=== PATIENT | female | born 1945 ===

== ENCOUNTER 2024-06-09 12:19 | Emergency (ER) | payer OTHER, SELFPAY ==
[2024-06-09 12:24] VITALS: BP 145/60
[2024-06-09 12:54] LABS: % Basophils 0.9 % (0-2); % Eosinophils 6.2 % (0-6); % Immature Granulocytes 0.2 % (0-0.5); % Lymphocytes 34.4 % (20.5-51.1); % Monocytes 5.6 % (1.7-9.3); % Neutrophils 52.7 % (42.2-75.2); Absolute Basophils 0.1 10^3/uL (0-0.2); Absolute Eosinophils 0.4 10^3/uL (0-0.7); Absolute Lymphocytes 2.2 10^3/uL (1.2-3.4); Absolute Monocytes 0.4 10^3/uL (0.1-0.6); Absolute Neutrophils 3.4 10^3/uL (1.4-6.5); Hematocrit 35.2 % (37.0-47.0); Hemoglobin 12.3 g/dL (12.0-16.0); Mean Corp Hgb Conc. 34.9 g/dL (33.0-37.0); Mean Corpuscular Volume 91.7 fL (81.0-99.0); Nucleated Red Blood Cells % 0 %; Platelet Count 183 10^3/uL (130-400); Red Blood Cell Count 3.84 10^6/uL (4.20-5.40); Red Cell Dist. Width 11.9 % (11.5-14.5); White Blood Cell Count 6.4 10^3/uL (4.8-10.8)
[2024-06-09 13:04] LABS: ALT (SGPT) 13 U/L (0-35); AST (SGOT) 22 U/L (14-36); Albumin 4.4 g/dl (3.5-5.0); Alkaline Phosphatase 55 U/L (38-126); Blood Urea Nitrogen 23 mg/dl (7-17); Calcium 10.1 mg/dl (8.4-10.2); Carbon Dioxide 24 mmol/L (22-30); Chloride 105 mmol/L (98-107); Glucose 162 mg/dl (70-99); Potassium 3.9 mmol/L (3.5-5.1); Sodium 137 mmol/L (135-145); Total Bilirubin 0.6 mg/dl (0.2-1.3); Total Protein 6.4 g/dl (6.3-8.2); eGFR 57.31
--- NOTE | 2024-06-09 13:20 | EDRN ---
Lisha Roberts PA in to see ptVictorina
[2024-06-09 13:30] VITALS: BMI 25.0
--- NOTE | 2024-06-09 13:43 | ED.GENMED ---
History of Present Illness
General
Chief Complaint: Skin Problem
Source: patient
Time Seen by Provider: 06/09/24 13:11
History of Present Illness
History of Present Illness:
79yoF with a history of hypertension and hyperlipidemia presenting for evaluation of a left neck rash. Rash initially started 3 days ago. She was seen by her PCP and was diagnosed with cellulitis and was prescribed Keflex. She woke up this morning
and the rash appeared worse. The rash is very itchy but she denies any significant tenderness. She has been apply hydrocortisone cream which seems to help. She is otherwise feeling well. She denies fevers, chills, body aches, fatigue.
Phy Exam
General Physical Exam
General Presentation: well appearing and no apparent distress
General age: appears stated age
General Skin: warm and dry
General Habitus: normal
General Mental: alert
General Hydration: appears well hydrated
Pulmonary Exam
Pulmonary Exam: no respiratory distress
Skin Exam
Skin Exam: other (Area of erythema to L side of neck that extends to upper chest. Scattered raised areas present. No vesicular lesions. Area is itchy, non-tender. Blanchable. )
Psychiatric Exam
Psychiatric Exam: normal mood/affect
Course
Orders/Labs/Results
Orders:
Orders
06/09/24 12:34
Complete Blood Count/With Diff Urgent
Comprehensive Metabolic Panel Urgent
Abnormal Lab Results
06/09/24
12:34
RBC 3.84 L 10^6/uL
(4.20-5.40)
Hct 35.2 L %
(37.0-47.0)
MCH 32.0 H pg
(27.0-31.0)
MPV 11.0 H fL
(7.4-10.4)
Eosinophils % 6.2 H %
(0-6)
BUN 23 H mg/dl
(7-17)
Glucose 162 H mg/dl
(70-99)
06/09/24 12:34
06/09/24 12:34
Vital Signs
Initial and Last Documented VS:
Initial Vital Signs
Temp Pulse Resp BP Pulse Ox
97.7 F 59 17 145/60 97
06/09/24 12:24 06/09/24 12:24 06/09/24 12:24 06/09/24 12:24 06/09/24 12:24
Last Documented Vital Signs
Temp Pulse Resp BP Pulse Ox
97.7 F 50 16 122/47 99
06/09/24 12:24 06/09/24 13:58 06/09/24 14:00 06/09/24 13:58 06/09/24 13:58
MDM/Problems Addressed
Differential Diagnosis Includes:
79yoF here with a L neck rash x 3 days that is extremely itchy. Currently on Keflex which was prescribed by her PCP for cellulitis. Here with worsening rash today. No fevers, chills, or systemic symptoms. She is afebrile and hemodynamically stable.
She is well appearing in no distress. There is erythema on exam with scattered raised areas. Exam appears more consistent with dermatitis rather than cellulitis. No vesicular lesions to suggest zoster.
Labs obtained in triage and white count is normal. Will prescribe prednisone. She was advised to continue Keflex. Advised f/u with her PCP in 72 hours for reassessment. ED return precautions discussed including worsening rash, fevers, chills.
Patient expressed understanding and is agreeable to plan. She was discharged in stable condition.
*Critical Care Note
Total Time (30-74mins, 75-104mins- exclusive of procedures): Not Applicable
ED Attending Note
-
Portions of this chart may have been created with voice recognition software.� Occasional wrong word or��sound alike� substitutions may have occurred due to the inherent limitations of voice recognition software.
Discharge Plan
Departure
Patient Disposition: Home (Routine Discharge)
Date of Disposition: 06/09/24
Time of Disposition: 13:51
Patient with high blood pressure during this ER visit?: Yes
Discharge Problem:
Rash and nonspecific skin eruption
Instructions: Skin Rash (DC)
Prescriptions:
New
prednisone 20 mg tablet
40 mg PO DAILY 5 Days Qty: 10 0RF
Referrals:
Subhash Rose, DO [Family Provider] -
Activity Restrictions/Additional Instructions:
Continue taking Keflex. Take prednisone as prescribed.
Please follow-up with your family doctor on Wednesday. Return to the ER immediately with any worsening symptoms, fevers, chills.
Interventions
Interventions:
*Risk Screen - Suicide Last Done: 06/09/24 12:26
*General Assessment Last Done: 06/09/24 12:26
*Neglect/Abuse Screening Last Done: 06/09/24 12:26
ED- Fall Risk Assessment Last Done: 06/09/24 13:34
*ED COVID-19 Vaccine History Last Done: 06/09/24 12:26
*Nursing Disposition Last Done: 06/09/24 14:05
ED-Skin Assessment Last Done: 06/09/24 13:35
Discharge Date and Time
Discharge Date/Time: 06/09/24 14:05
Print Language: FRENCH
--- NOTE | 2024-06-09 13:51 | WOUNDNOTE ---
WOUND/SKIN CARE NOTE: Pt identified by name and .
Close up of rash anteriorly on upper L chest wall
L upper posterior upper back and neck.
L lateral neck and top of L shoulder
L anterior neck and upper L chest.
[2024-06-09 13:58] VITALS: BP 122/47
== END 2024-06-09 14:05 | disposition home or self-care (01) ==
LOC: EMR 12:19
PROVIDERS: EMERGENCY PHYSICIAN Emergency Medicine; FAMILY PHYSICIAN Family Medicine
DX: R21 Rash and other nonspecific skin eruption (principal); I10 Essential (primary) hypertension; E78.5 Hyperlipidemia, unspecified
CPT/HCPCS: 99283; 80053; 85025

== ENCOUNTER → 2025-05-10 08:09 | Outpatient (REF) | payer OTHER, SELFPAY | LOC: RAD 08:09 | PROVIDERS: ATTENDING PHYSICIAN Podiatrist Foot & Ankle Surgery; FAMILY PHYSICIAN Family Medicine | DX: I82.4Z2 Acute embolism and thrombosis of unspecified deep veins of left distal lower extremity (principal) | CPT/HCPCS: 93971 ==

== ENCOUNTER 2025-09-04 11:47 | Emergency (ER) | payer OTHER, SELFPAY ==
[2025-09-04 11:56] VITALS: BP 157/89
[2025-09-04 12:21] LABS: Hematocrit 39.6 % (37.0-47.0); Hemoglobin 13.8 g/dL (12.0-16.0); Mean Corp Hgb Conc. 34.8 g/dL (33.0-37.0); Mean Corpuscular Volume 91.5 fL (81.0-99.0); Nucleated Red Blood Cells % 0 %; Platelet Count 233 10^3/uL (130-400); Red Cell Dist. Width 11.6 % (11.5-14.5)
[2025-09-04 12:36] LABS: ALT (SGPT) 20 U/L (0-35); AST (SGOT) 22 U/L (14-36); Albumin 5.0 g/dl (3.5-5.0); Alkaline Phosphatase 69 U/L (38-126); Blood Urea Nitrogen 27 mg/dl (7-17); Calcium 10.4 mg/dl (8.4-10.2); Carbon Dioxide 20 mmol/L (22-30); Chloride 101 mmol/L (98-107); Glucose 276 mg/dl (70-99); Lipase 195 U/L (23-300); Magnesium 1.6 mg/dl (1.6-2.3); Potassium 4.8 mmol/L (3.5-5.1); Sodium 135 mmol/L (135-145); Total Protein 7.5 g/dl (6.3-8.2); eGFR 50.80
[2025-09-04 13:10] LABS: Urine Character Clear (Clear)
[2025-09-04 13:16] LABS: Urine Red Blood Cell 0-2 /HPF (0-2); Urine White Cell 30-40 /HPF (0-5)
--- NOTE | 2025-09-04 15:25 | ED.GENMED ---
Addendum entered and electronically signed by Gregg Tripathi PA-C 09/06/25 06:51:
Urine culture shows greater than 100,000 colony-formin units of gram-negative bacilli. On cefdinir. Sensitivities pending
Original Note:
History of Present Illness
General
Chief Complaint: Weakness
Source: patient
Exam Limitations: none
Time Seen by Provider: 09/04/25 15:08
History of Present Illness
History of Present Illness:
80-year-old female presents complaining of fatigue nausea weakness headache loose stools. Has been getting worse over the past several days. She was recently started on a different diuretic and has noted increased urinary frequency. She denies
any dysuria. She had an episode of diarrhea. She is nauseous without vomiting. No other complaints at this time
Phy Exam
Physical Exam
Physical Exam:
General: Well-appearing female no acute respiratory distress
HEENT normal cephalic atraumatic mucosa dry
Heart: Regular rate and rhythm
Lungs: Clear no wheeze
Abdomen is soft nontender
Extremities: No cyanosis or edema
Skin warm no rash
Course
Orders/Labs/Results
Orders:
Orders
09/04/25 12:07
Complete Blood Count/With Diff Urgent
Comprehensive Metabolic Panel Urgent
Lipase Urgent
Magnesium Urgent
09/04/25 12:57
Urinalysis Reflex To Culture Urgent
Date Specimen was Collected: 09/04/25
Time Specimen was Collected: 12:56
Urine Microscopic Reflex Cult Urgent
Urine Culture Urgent
NIGEL Source: U
Specimen Description:
Date Specimen was Collected: 09/04/25
Time Specimen was Collected: 12:56
09/04/25 15:24
0.9% Sodium Chloride 1000 ml [Nss] 1,000 ml IV BOLUS
CefTRIAXone [Rocephin] 1,000 mg IV NOW STA
Ondansetron Injectable [Zofran] 4 mg IV NOW STA
09/04/25 17:28
Tramadol HCl [Ultram] 50 mg PO NOW STA
Abnormal Lab Results
09/04/25 09/04/25
12:07 12:57
MCH 31.9 H pg
(27.0-31.0)
MPV 10.7 H fL
(7.4-10.4)
Absolute Lymphs (auto) 1.0 L 10^3/uL
(1.2-3.4)
Lymphocytes % 15.9 L %
(20.5-51.1)
Carbon Dioxide 20 L mmol/L
(22-30)
BUN 27 H mg/dl
(7-17)
Creatinine 1.1 H mg/dL
(0.6-1.0)
Glucose 276 H mg/dl
(70-99)
Calcium 10.4 H mg/dl
(8.4-10.2)
Ur Occult Blood Reflex 1+ A
(Negative)
Urine Nitrite (Reflex) Positive A
(Negative)
Leukocyte Esterase Rfl 3+ A
(Negative)
Urine WBC (Reflex) 30-40 A /HPF
(0-5)
Urine Bacteria (Reflex) Moderate A
(Negative)
Urine Glucose 2+ A
(Negative)
Urine Albumin (Reflex) 2+ A
(Neg - Trace)
09/04/25 12:07
09/04/25 12:07
Vital Signs
Initial and Last Documented VS:
Initial Vital Signs
Temp Pulse Resp BP Pulse Ox
98.1 F 86 20 157/89 97
09/04/25 11:56 09/04/25 11:56 09/04/25 11:56 09/04/25 11:56 09/04/25 11:56
Last Documented Vital Signs
Temp Pulse Resp BP Pulse Ox
98.1 F 86 20 157/89 97
09/04/25 11:56 09/04/25 11:56 09/04/25 11:56 09/04/25 11:56 09/04/25 16:00
MDM/Problems Addressed
Differential Diagnosis Includes:
Patient with overall unwell sensation. She has noted decreased intake. There is been increased urinary frequency and diarrhea as well. Consider dehydration versus electrolyte abnormality versus viral illness or UTI
Will check labs hydrate give Zofran
*Pulse Oximetry
SaO2: 97
Oxygen Mode of Delivery: Room air
Patient hypoxic: no
*Critical Care Note
Total Time (30-74mins, 75-104mins- exclusive of procedures): Not Applicable
Update Note
Update Note:
Patient reevaluated she was hydrated given Rocephin. Standing up talking to friends. No indication for admission. Will continue to advise hydration at home and treat with Omnicef for her UTI
ED Attending Note
-
Portions of this chart may have been created with voice recognition software.� Occasional wrong word or��sound alike� substitutions may have occurred due to the inherent limitations of voice recognition software.
Discharge Plan
Departure
Patient Disposition: Home (Routine Discharge)
Date of Disposition: 09/04/25
Time of Disposition: 18:08
Patient with high blood pressure during this ER visit?: No
Discharge Problem:
Acute UTI
Prescriptions:
New
cefdinir 300 mg capsule
300 mg PO BID Qty: 14 0RF
No Action
carvedilol [Coreg] 6.25 mg Tablet
6.25 mg PO BID
atorvastatin [Lipitor] 20 mg Tablet
20 mg PO HS
loperamide 2 mg Tablet
2 mg PO BIDPRN PRN (Reason: DAIRRHEA)
glipizide 5 mg Tablet Extended Release 24hr
5 mg PO DAILY
cyanocobalamin (vitamin B-12) 1,000 mcg Tablet
1,000 mcg PO DAILY
amlodipine [Norvasc] 5 mg Tablet
5 mg PO DAILY
tramadol 50 mg Tablet
50 mg PO QID
amiloride 5 mg Tablet
5 mg PO QPM
pantoprazole [Protonix] 40 mg Tablet,Delayed Release (Dr/Ec)
40 mg PO DAILY
ibuprofen [Advil] 200 mg Tablet
200 mg PO DAILYPRN PRN (Reason: MILD PAIN)
doxazosin 4 mg Tablet
4 mg PO HS
montelukast [Singulair] 10 mg Tablet
10 mg PO DAILY
zolpidem [Ambien] 5 mg Tablet
5 mg PO HSPRN PRN (Reason: sleep)
gabapentin 100 mg Capsule
100 mg PO DAILY
celecoxib [Celebrex] 100 mg Capsule
100 mg PO BID
lisinopril 40 mg Tablet
40 mg PO DAILY
magnesium oxide 250 mg magnesium Tablet
250 mg PO TID
Systane (PF) 0.4-0.3 % Dropperette
1 drp BOTH EYES BID
cholecalciferol (vitamin D3) [Vitamin D3] 25 mcg (1,000 unit) Tablet
25 mcg PO DAILY
levocetirizine [Xyzal] 5 mg Tablet
5 mg PO HS
PreserVision AREDS 2,148 mcg-113 mg-45 mg-17.4mg Tablet
1 tab PO DAILY
guaifenesin [Mucinex] 600 mg Tablet Extended Release 12hr
600 mg PO DAILY
Referrals:
Subhash Rose DO [Family Provider, Family Practice]
Activity Restrictions/Additional Instructions:
Rest. Stay hydrated. Use antibiotic as directed. Return if worse otherwise follow-up with your doctor
Interventions
Interventions:
*Risk Screen - Suicide Last Done: 09/04/25 11:56
*General Assessment Last Done: 09/04/25 11:56
*Neglect/Abuse Screening Last Done: 09/04/25 11:56
*ED- Fall Risk Assessment Last Done: 09/04/25 16:00
ED- Cardiac Assessment Last Done: 09/04/25 16:00
ED- Neurological Assessment Last Done: 09/04/25 16:00
ED- Pulmonary Assessment Last Done: 09/04/25 16:00
Discharge Date and Time
Print Language: EMIRATI
[2025-09-04] MEDS: NSS 1000 IV (16:07)
[2025-09-04] MEDS: ZOFRAN 4 MG IV (16:08)
[2025-09-04] MEDS: ROCEPHIN 1000 MG IV (16:09)
[2025-09-04] MEDS: ULTRAM 50 MG PO (17:37)
[2025-09-04 18:00] VITALS: BP 146/82
== END 2025-09-04 18:00 | disposition home or self-care (01) ==
LOC: EMR 11:47
PROVIDERS: Emergency Medicine; EMERGENCY PHYSICIAN Emergency Medicine; FAMILY PHYSICIAN Family Medicine
DX: N39.0 Urinary tract infection, site not specified (principal); B96.20 Unspecified Escherichia coli [E. coli] as the cause of diseases classified elsewhere
CPT/HCPCS: 99284; 96374; 96375; 96361; 80053; 81003; 81015; 83690; 83735; 85025; 87077; 87086; 87186

== ENCOUNTER 2025-09-11 14:04 | Inpatient (IN) | payer OTHER, SELFPAY ==
[2025-09-11 06:27] VITALS: BP 152/90
[2025-09-11 07:25] LABS: Hematocrit 36.1 % (37.0-47.0); Hemoglobin 12.8 g/dL (12.0-16.0); Mean Corp Hgb Conc. 35.5 g/dL (33.0-37.0); Mean Corpuscular Volume 88.3 fL (81.0-99.0); Nucleated Red Blood Cells % 0 %; Platelet Count 223 10^3/uL (130-400); Red Cell Dist. Width 11.5 % (11.5-14.5)
[2025-09-11 07:32] VITALS: BP 152/81
[2025-09-11 08:00] VITALS: BP 137/65
[2025-09-11 08:04] LABS: ALT (SGPT) 15 U/L (0-35); AST (SGOT) 20 U/L (14-36); Albumin 4.2 g/dl (3.5-5.0); Alkaline Phosphatase 66 U/L (38-126); Blood Urea Nitrogen 20 mg/dl (7-17); Calcium 9.9 mg/dl (8.4-10.2); Carbon Dioxide 20 mmol/L (22-30); Chloride 104 mmol/L (98-107); Glucose 151 mg/dl (70-99); Potassium 4.5 mmol/L (3.5-5.1); Sodium 135 mmol/L (135-145); Total Protein 6.5 g/dl (6.3-8.2); eGFR 50.80
--- NOTE | 2025-09-11 08:13 | ED.GENMED ---
History of Present Illness
General
Chief Complaint: Weakness
Source: patient, records and spouse
Exam Limitations: none
Time Seen by Provider: 09/11/25 08:05
Nursing documentation reviewed up to this point in time: agreed with
History of Present Illness
History of Present Illness:
80-year-old female with history of hypertension and hyperlipidemia presents to the ER for evaluation of multiple complaints chief among them feeling severely fatigued. Patient was notably seen in this emergency room 1 week ago for generalized
weakness was also having some increased urinary frequency at the time and some nausea. Urinalysis was positive for infection and she was started on Omnicef and encouraged to drink fluids. She has taken this course of antibiotics and has been
drinking plenty of fluids but she says that she feels no better. She actually says that she feels worse. She has increased generalized weakness/fatigue. She says that she has had persistent increased frequency of urination and has started to have
some dysuria over the past 24 to 48 hours. She says she is having persistent abdominal cramping over the past few days. She has been having nausea with dry heaves�no vomiting. She denies any diarrhea�in fact she says she has been constipated for
the past few days requiring senna and finally had a bowel movement this morning. She has not noted fever. She denies any chest pain but has had persistent hacking cough nonproductive. Mild associated shortness of breath. She denies any other
acute complaints.
Review of Systems
Review of Systems
All Other Systems: ROS reviewed and negative except as documented in HPI and ROS
Constitutional: Reports fatigue; Denies fever
EENT: Denies sore throat
Respiratory: Reports cough and trouble breathing
Cardiac: Denies chest pain
ABD/GI: Reports abdominal pain, nausea and constipated; Denies vomiting or diarrhea
: Reports dysuria and frequency; Denies flank pain
Musculoskeletal: Denies neck pain
Neurological: Denies dizzy or headache
Phy Exam
Physical Exam
Physical Exam:
General: Awake, alert, oriented x3; no acute distress
Head: Normocephalic, atraumatic
Eyes: Conjunctiva normal, sclera anicteric
Throat: Airway intact, handling secretions, mucous membranes moist
Neck: Trachea midline, supple without meningismus
Lungs: Clear to auscultation bilaterally, no wheezing, rales, rhonchi; no coughing during my assessment
Heart: Regular rate and rhythm, no murmurs, gallops, or rubs appreciated
Abd: Soft, non distended, nontender; tender to palpation across lower abdomen maximal in the suprapubic region
Neuro: Grossly intact
Skin: Warm and dry
Extremities: Warm and well-perfused
Scores
Heart Failure Risk
Heart Failure Risk Score: Not Applicable
Heart Score for Chest Pain Patients
STEMI patient?: Not applicable
Withdrawal Assessment of Alcohol
Withdrawal Assessment Completed?: Not applicable
Sepsis
Sepsis Screening
Sepsis Assessment: Sepsis Ruled Out
Sepsis Screen
Sepsis Screen: Sepsis Ruled Out
Date: 09/11/25
Time: 10:22
Course
Orders/Labs/Results
Orders:
Orders
09/11/25 07:16
CMP [Comprehensive Metabolic Panel] Urgent
Complete Blood Count/With Diff Urgent
09/11/25 07:50
Electrocardiogram (*1) Urgent
Reason for Study: Fatigue / Weakness
EKG- Treatment ONCE
09/11/25 08:07
CR Chest - 2 Views Urgent
Comment:
Reason For Exam: SOB, weakness
09/11/25 08:19
CT Abd/pelvis W Iv Cont Urgent
Comment:
Reason For Exam: lower abd pain, TTP suprapubic and LLQ, nausea
09/11/25 08:22
COVID-19 Antigen Urgent
Source: Nasal Swab
Urinalysis Reflex To Culture Urgent
Date Specimen was Collected: 09/11/25
Time Specimen was Collected: 08:15
Urine Microscopic Reflex Cult Urgent
Influenza A+B Rapid Molecular Urgent
NIGEL Source: Nasal Swab
Specimen Description:
Urine Culture Urgent
NIGEL Source: U
Specimen Description:
Date Specimen was Collected: 09/11/25
Time Specimen was Collected: 08:15
Abnormal Lab Results
09/11/25 09/11/25
07:16 08:22
RBC 4.09 L 10^6/uL
(4.20-5.40)
Hct 36.1 L %
(37.0-47.0)
MCH 31.3 H pg
(27.0-31.0)
Lymphocytes % 17.4 L %
(20.5-51.1)
Carbon Dioxide 20 L mmol/L
(22-30)
BUN 20 H mg/dl
(7-17)
Creatinine 1.1 H mg/dL
(0.6-1.0)
Glucose 151 H mg/dl
(70-99)
Leukocyte Esterase Rfl 1+ A
(Negative)
Urine Bacteria (Reflex) Few A
(Negative)
Urine Albumin (Reflex) 1+ A
(Neg - Trace)
09/11/25 07:16
09/11/25 07:16
Vital Signs
Initial and Last Documented VS:
Initial Vital Signs
Temp Pulse Resp BP Pulse Ox
36.4 C 80 24 152/90 98
09/11/25 06:27 09/11/25 06:27 09/11/25 06:27 09/11/25 06:27 09/11/25 06:27
Last Documented Vital Signs
Temp Pulse Resp BP Pulse Ox
36.4 C 70 18 137/65 98
09/11/25 06:27 09/11/25 09:30 09/11/25 09:30 09/11/25 08:00 09/11/25 09:30
MDM/Problems Addressed
Differential Diagnosis Includes:
Viral syndrome, UTI, intra-abdominal infection including diverticulitis, pneumonia
MDM/Problems Addressed:
80-year-old female presents to the ER for evaluation of increased generalized weakness/fatigue progressive since ER visit last week where she was diagnosed with UTI.. She has had increased abdominal pains, nausea with dry heaves. Also persistent
cough with some mild shortness of breath. She is hypertensive but otherwise normal vital signs here. Physical exam is as above. She had labs in triage including a CBC which showed no clinically significant abnormalities and a CMP which shows
marginal EMA with creatinine of 1.1 stable since her visit last week. Will repeat urinalysis. Swab for COVID and flu. Check chest x-ray to evaluate for pneumonia. Check CT abdomen. Reassess after the above.
COVID and flu swabs are negative here. Her urinalysis today is essentially bland. Her chest x-ray shows no acute disease. Abdominal CT shows signs consistent with diffuse colitis. Infectious colitis versus inflammatory colitis, unlikely ischemic
colitis based on full clinical picture and imaging. C. difficile is a consideration especially with antibiotics recently however she has actually been constipated rather than having diarrhea which makes this extremely unlikely. Will plan to admit
for symptom control, GI consultation. Discussed case with hospitalist.
Acute Exacerbation and/or Progression of Chronic Illness: HTN
*Radiology
Radiology exam reviewed: radiology read reviewed
*Pulse Oximetry
SaO2: 94
Oxygen Mode of Delivery: Room air
Patient hypoxic: no (94%)
*Critical Care Note
Total Time (30-74mins, 75-104mins- exclusive of procedures): Not Applicable
Data Reviewed
Review of Other/Old Records Reveals: Labs and Records
Source: patient, records and spouse
Patient Management
Discussion with other providers: Hospitalist (Discussed with hospitalist)
Escalation/DeEscalation of care consider admission/obs:
Admission indicated
ED Attending Note
-
Portions of this chart may have been created with voice recognition software.� Occasional wrong word or��sound alike� substitutions may have occurred due to the inherent limitations of voice recognition software.
Discharge Plan
Departure
Patient Disposition: Admit
Date of Disposition: 09/11/25
Time of Disposition: 10:29
Admit to doctor: Jarod
Presentation/result/management discussed w/ accepting MD/DO: Hospitalist
Discharge Problem:
Colitis
Prescriptions:
No Action
carvedilol [Coreg] 6.25 mg Tablet
6.25 mg PO BID
atorvastatin [Lipitor] 20 mg Tablet
20 mg PO HS
loperamide 2 mg Tablet
2 mg PO BIDPRN PRN (Reason: DAIRRHEA)
glipizide 5 mg Tablet Extended Release 24hr
5 mg PO DAILY
cyanocobalamin (vitamin B-12) 1,000 mcg Tablet
1,000 mcg PO DAILY
amlodipine [Norvasc] 5 mg Tablet
5 mg PO DAILY
tramadol 50 mg Tablet
50 mg PO QID
amiloride 5 mg Tablet
5 mg PO QPM
pantoprazole [Protonix] 40 mg Tablet,Delayed Release (Dr/Ec)
40 mg PO DAILY
ibuprofen [Advil] 200 mg Tablet
200 mg PO DAILYPRN PRN (Reason: MILD PAIN)
doxazosin 4 mg Tablet
4 mg PO HS
montelukast [Singulair] 10 mg Tablet
10 mg PO DAILY
zolpidem [Ambien] 5 mg Tablet
5 mg PO HSPRN PRN (Reason: sleep)
gabapentin 100 mg Capsule
100 mg PO DAILY
celecoxib [Celebrex] 100 mg Capsule
100 mg PO BID
lisinopril 40 mg Tablet
40 mg PO DAILY
magnesium oxide 250 mg magnesium Tablet
250 mg PO TID
Systane (PF) 0.4-0.3 % Dropperette
1 drp BOTH EYES BID
cholecalciferol (vitamin D3) [Vitamin D3] 25 mcg (1,000 unit) Tablet
25 mcg PO DAILY
levocetirizine [Xyzal] 5 mg Tablet
5 mg PO HS
PreserVision AREDS 2,148 mcg-113 mg-45 mg-17.4mg Tablet
1 tab PO DAILY
guaifenesin [Mucinex] 600 mg Tablet Extended Release 12hr
600 mg PO DAILY
cefdinir 300 mg capsule
300 mg PO BID Qty: 14 0RF
Referrals:
Tevin Goodwin DO [Family Provider, Family Practice]
Interventions
Interventions:
*Risk Screen - Suicide Last Done: 09/11/25 06:27
*General Assessment Last Done: 09/11/25 07:18
*Neglect/Abuse Screening Last Done: 09/11/25 06:27
*ED- Fall Risk Assessment Last Done: 09/11/25 07:18
*ED COVID-19 Vaccine History Last Done: 09/11/25 07:18
*ED Influenza Vaccine History Last Done: 09/11/25 07:18
ED- Cardiac Assessment Last Done: 09/11/25 07:18
ED-Female Genitourinary Assessment Last Done: 09/11/25 07:18
ED- Neurological Assessment Last Done: 09/11/25 07:18
ED- Pulmonary Assessment Last Done: 09/11/25 07:18
Discharge Date and Time
Print Language: GRENADIAN
[2025-09-11 08:37] LABS: Urine Character Clear (Clear)
[2025-09-11 08:57] LABS: COVID-19 Antigen Negative (Negative)
[2025-09-11 09:56] LABS: Urine Red Blood Cell 0-2 /HPF (0-2)
[2025-09-11 10:32] VITALS: BP 163/74
[2025-09-11] MEDS: ULTRAM 50 MG PO ×2 (13:34→21:23)
--- NOTE | 2025-09-11 13:42 | HPS.HSE ---
Family Physician
-
Family Physician: Tevin Goodwin
Chief Complaint
-
weakness
History of Present Illness
80-year-old female is presenting from home with complaints of feeling fatigued. Patient was seen in the ER a week ago for weakness and dysuria. Patient was found to urinary tract infection was discharged on p.o. antibiotics. Patient says she has
been taking the antibiotics at home. States also increased oral intake of liquids. States usually she gets constipation with antibiotics and started taking Senokot for the past few days. Started having bowel movements. States formed bowel
movements. States she has been drinking p.o. fluids however was not feeling better. Has no appetite. Ate some toast but then felt nauseous afterwards. Also stating of abdominal cramping for the past few days. States of nausea with dry heaves
but no vomiting. Denies any fevers. States of just feeling fatigued overall and thus decided come into the ER. Underwent right knee replacement few months ago. Denies any chest pain or shortness of breath.
Medical History
Past Medical History
Past Medical History: Reports Other
Additional Past Medical History:
Primary hypertension
Hyperlipidemia
Uterine prolapse
Arthritis
Irritable bowel syndrome
States history of colitis
Past Surgical History: Reports Orthopedic (Recent right knee surgery.) and Other
Additional Past Surgical History:
Lumbar laminectomy
Cataract surgery
Left foot surgery
Social History
Drug: None
Personal:
Living: With Family
Family History
Family History: Not pertinent
Allergies / Home Medications
Allergies reflects when Allergies were last updated in [employer].
Home Medications with original date entered in [employer]
Allergy/Medication List:
Allergies
Allergy/AdvReac Type Severity Reaction Status Date / Time
amoxicillin (From Augmentin) Allergy Unknown Rash Verified 09/11/25 06:29
clavulanic acid (From Allergy Unknown Rash Verified 09/04/25 12:00
Augmentin)
Home Medications
amiloride 5 mg tablet 5 mg PO QPM Heart Disease/Condition 09/04/25
amlodipine 5 mg tablet (Norvasc) 5 mg PO DAILY Blood Pressure 09/04/25
atorvastatin 20 mg tablet (Lipitor) 20 mg PO HS High Cholesterol 09/04/25
carvedilol 6.25 mg tablet (Coreg) 6.25 mg PO BID Blood Pressure 09/04/25
cefdinir 300 mg capsule 300 mg PO BID #14 caps 09/04/25
celecoxib 100 mg capsule (Celebrex) 100 mg PO BID mild pain 09/04/25
cholecalciferol (vitamin D3) 25 mcg (1,000 unit) tablet (Vitamin D3) 25 mcg PO DAILY Supplement 09/04/25
cyanocobalamin (vitamin B-12) 1,000 mcg tablet 1,000 mcg PO DAILY Supplement 09/04/25
doxazosin 4 mg tablet 4 mg PO HS Heart Disease/Condition 09/04/25
gabapentin 100 mg capsule 100 mg PO DAILYPRN PRN MILD PAIN 09/04/25
glipizide 5 mg tablet, extended release 24 hr 5 mg PO DAILY Diabetes 09/04/25
guaifenesin 600 mg tablet, extended release 12 hr (Mucinex) 600 mg PO DAILYPRN PRN COUGH 09/04/25
levocetirizine 5 mg tablet (Xyzal) 5 mg PO HSPRN PRN ALLERGIES 09/04/25
lisinopril 40 mg tablet 40 mg PO DAILY Blood Pressure 09/04/25
magnesium oxide 250 mg PO TID Supplement 09/04/25
montelukast 10 mg tablet (Singulair) 10 mg PO DAILY Allergies 09/04/25
pantoprazole 40 mg tablet,delayed release (Protonix) 40 mg PO DAILY gerd 09/04/25
peg 400-propylene glycol (PF) 0.4 %-0.3 % eye drops in a dropperette 1 drp BOTH EYES BIDPRN PRN DRY EYES 09/04/25
tramadol 50 mg tablet 50 mg PO QIDPRN PRN MODERATE PAINS 09/04/25
vitamins A,C,R-ykai-waqdrd 2,148 mcg-113 mg-45 mg-17.4 mg tablet (PreserVision AREDS) 1 tab PO DAILY Supplement 09/04/25
zolpidem 5 mg tablet (Ambien) 5 mg PO HS Sleep 09/04/25
acetaminophen 325 mg tablet (Tylenol) 650 mg PO Q6HPRN PRN MILD PAIN 09/11/25
sennosides 8.6 mg tablet (senna) 8.6 mg PO HS Constipation 09/11/25
Review of Systems
-
History Source: Patient and Family
A 12 point ROS was completed and negative except as noted: Yes
Physical Exam
Vital Signs
Vital Signs
Temp Pulse Resp BP Pulse Ox
97.5 F 74 21 163/74 98
09/11/25 06:27 09/11/25 11:00 09/11/25 11:00 09/11/25 10:32 09/11/25 11:00
Physical Exam
General: Well Developed, Well Nourished and No Apparent Distress
HEENT: NormoCephalic, Moist mucous membranes and Atraumatic
Respiratory: Clear
Cardiac: S1/S2 and Regular Rhythm; No Murmur or Rub
GI: Soft, Non Distended, Normal Bowel Sounds and Tender; No Organomegaly
Rectal: Deferred by Provider
Musculoskeletal: No Clubbing, No Cyanosis and No Edema
Skin: No Rash
Neuro: Awake, AO x 3, No Motor Deficits and Nonfocal/grossly intact
Psych: Calm
Laboratory Results
-
09/11/25 07:16
09/11/25 07:16
Laboratory Results
Total Bilirubin 1.1 mg/dl (0.2-1.3) 09/11/25 07:16
AST 20 U/L (14-36) 09/11/25 07:16
ALT 15 U/L (0-35) 09/11/25 07:16
Alkaline Phosphatase 66 U/L (38-126) 09/11/25 07:16
Data Reviewed
-
CT Scan: Report Reviewed by me, Discussed with Patient and Discussed with Family
Lab Data: Labs Reviewed by me
Impression/Plan
-
#Abdominal pain/nausea likely secondary to diffuse colitis
#History of colitis in the past unclear etiology
IBS unknown type
Has undergone colonoscopy not too long ago.
Will continue with clears for now
Check stool studies
Hold off on antibiotics for now
Start IV fluids
CT abd/pelvis with Diffuse mild wall thickening and enhancement involving the entire colon, suggestive of diffuse colitis. Main consideration for infectious colitis, as well as antibiotic associated C. difficile colitis. Ischemic colitis would be
unlikely to have such a diffuse distribution. Inflammatory bowel disease is a differential consideration.
Await GI input
#Primary hypertension
Continue with carvedilol and Norvasc
#Hyperlipidemia
Continue with statin
Vitamin B12 deficiency
Continue with supplements
Diabetes mellitus type 2
Hold p.o. meds
Continue insulin sliding scale and Accu-Cheks
Chronic back pain
Continue with tramadol as needed
DVT ppx-lovenox
Full code
d/w with spouse and another family member at bedside
I spent a total of 80 minutes with the patient or on the floor. More than 50% of this time involved counseling and coordination of care.
--- NOTE | 2025-09-11 13:47 | CON.GI ---
Addendum entered and electronically signed by Yosvany Andersen MD 09/11/25 16:30:
I saw and examined the patient.
The [employer] or PA's note was reviewed and I agree with the note.
Comment:
This patient is an 80-year-old woman who has a history of [id number] diabetes, hypertension, hyperlipidemia who had recent UTI as well as knee replacement. She did come with overall fatigue and decreased appetite and overall not feeling
well. She did have a CAT scan that looks like significant stool burden that was read as colitis. She did not have a bowel movement until she got into the emergency room. She has had 5 regular bowel movements that were not loose in the emergency
room and does feel better.
abd; soft, nontender
impression:
constipation with intermittent overflow
abnl ct scan (viewed images and report)
plan:
bowel regimen. will just give senna today as she is having bms
if diarrhea then check stool studies
clear liquids and advance as tolerated
PPI
Original Note:
Consultation
-
Date/Time Consultation Requested: 09/11/25 1330
Date/Time Consultation Performed: 09/11/25 1345
Requesting Provider: Chris Bowen MD
Performing Provider: KRISTEN Jimenez, Yosvany Andersen MD
Reason for Consultation: pancolitis
Medical History
Chief Complaint / HPI
Chief Complaint: abdominal pain, fatigue
History of Present Illness:
Pt is a 80yo presents with hx HTN, hyperlipidemia, NIDDM, murmur, scarlet fever, prior mag, multiple spinal surgery and recent TKR 11 weeks ago presents with ER visit last week with weakness and urinary frequency with nausea. Pt was started on
Omnicef with Ecoli on culture. She now returns feeling worse with fatigue, urinary frequency, and crampy abdominal pain. On admission Ct with IV contrast completed with concern for diffuse wall thickening in entire colon. infectious vs less
likely ischemic vs IBD. In review with patient she has hx chronic bowel issues. She will have several days with no stools then formed stool followed with several loose stools and often take antidiarrheal medication. She admits to recent knee
surgery with initial narcotic use then she started Amlodipine and began with issues. She admits to feeling of nausea and dry heaves with decreased appetite with wt loss over last week. She began to take senna last few days as thought she was
constipation with antibiotic use and actually had about 4 BM in ER and now feeling better. She dose admits to some residual lower abdominal pain. She denies odynophagia, dysphagia, GERD, vomiting, blood or black in stools. Pt admits to probiotic
use but denies any other chronic laxative use. She admits to hx 5 colonoscopies in past at [facility] then repeat last 2 years ago in [place] with normal results and told to use Imodium as needed for diarrhea. No prior EGD. No NSAID or
anticoagulation use. On admission no fever with normal WBC's, creat 1.1 otherwise stable labs. UA with few bacteria.
Past Medical History
Past Medical History: HTN, Hypercholesterolemia, Renal Failure (CKD) and Other (murmur, scarlet fever )
Past Surgical History: Cholecystectomy, Gynecological (hysterectomy), Orthopedic (L TKR, back surgery L4-5, foot plate) and Other (bladder surgery for prolapse, cataracts )
Social History
Tobacco: Non-Smoker
Alcohol: None
Drug: None
Personal:
Living: With Family
Employment: Retired
Family History
Family History: Other (no family hx colon CA or GI issues )
Allergies / Home Medications
Allergy/AdvReac Type Severity Reaction Status Date / Time
amoxicillin (From Augmentin) Allergy Unknown Rash Verified 09/11/25 06:29
clavulanic acid (From Allergy Unknown Rash Verified 09/04/25 12:00
Augmentin)
�Medication �Instructions �Recorded
amiloride 5 mg tablet 5 mg PO QPM Heart Disease/Condition 09/04/25
amlodipine 5 mg tablet (Norvasc) 5 mg PO DAILY Blood Pressure 09/04/25
atorvastatin 20 mg tablet (Lipitor) 20 mg PO HS High Cholesterol 09/04/25
carvedilol 6.25 mg tablet (Coreg) 6.25 mg PO BID Blood Pressure 09/04/25
cefdinir 300 mg capsule 300 mg PO BID #14 caps 09/04/25
celecoxib 100 mg capsule (Celebrex) 100 mg PO BID mild pain 09/04/25
cholecalciferol (vitamin D3) 25 25 mcg PO DAILY Supplement 09/04/25
mcg (1,000 unit) tablet (Vitamin
D3)
cyanocobalamin (vitamin B-12) 1,000 mcg PO DAILY Supplement 09/04/25
1,000 mcg tablet
doxazosin 4 mg tablet 4 mg PO HS Heart Disease/Condition 09/04/25
gabapentin 100 mg capsule 100 mg PO DAILYPRN PRN MILD PAIN 09/04/25
glipizide 5 mg tablet, extended 5 mg PO DAILY Diabetes 09/04/25
release 24 hr
guaifenesin 600 mg tablet, 600 mg PO DAILYPRN PRN COUGH 09/04/25
extended release 12 hr (Mucinex)
levocetirizine 5 mg tablet (Xyzal) 5 mg PO HSPRN PRN ALLERGIES 09/04/25
lisinopril 40 mg tablet 40 mg PO DAILY Blood Pressure 09/04/25
magnesium oxide 250 mg PO TID Supplement 09/04/25
montelukast 10 mg tablet 10 mg PO DAILY Allergies 09/04/25
(Singulair)
pantoprazole 40 mg tablet,delayed 40 mg PO DAILY gerd 09/04/25
release (Protonix)
peg 400-propylene glycol (PF) 0.4 1 drp BOTH EYES BIDPRN PRN DRY EYES 09/04/25
%-0.3 % eye drops in a dropperette
tramadol 50 mg tablet 50 mg PO QIDPRN PRN MODERATE PAINS 09/04/25
vitamins A,C,K-puww-kkxiht 2,148 1 tab PO DAILY Supplement 09/04/25
mcg-113 mg-45 mg-17.4 mg tablet
(PreserVision AREDS)
zolpidem 5 mg tablet (Ambien) 5 mg PO HS Sleep 09/04/25
acetaminophen 325 mg tablet 650 mg PO Q6HPRN PRN MILD PAIN 09/11/25
(Tylenol)
sennosides 8.6 mg tablet (senna) 8.6 mg PO HS Constipation 09/11/25
Review of Systems
-
History Source: Patient and Family
Constitutional: Reports Weight Loss (over last week ) and Fatigue
EENT: Reports No Symptoms
Respiratory: Reports No Symptoms
Cardiac: Reports No Symptoms
Abdomen/GI: Reports Abdominal Pain, Nausea (with dry heaves ), Diarrhea and Constipated
: Reports Frequency (last week with UTI)
Musculoskeletal: Reports No Symptoms
Skin: Reports No Symptoms
Neurological: Reports Weakness
Endocrine: Reports No Symptoms
Hematologic/Lymphatic: Reports No Symptoms
Vital Signs
Temp Pulse Resp BP Pulse Ox
97.5 F 74 21 163/74 98
09/11/25 06:27 09/11/25 11:00 09/11/25 11:00 09/11/25 10:32 09/11/25 11:00
Physical Exam
Exam
General: Well Developed, Well Nourished and No Apparent Distress
HEENT: Normocephalic and Anicteric
Respiratory: Clear
Cardiac: Regular Rhythm
GI: Soft, Non Distended and Tender (lower abdomen )
Musculoskeletal: No Clubbing and No Cyanosis
Skin: Warm and Dry
Neuro: Awake, Alert and AO x 3
Psych: Calm
Results
WBC 6.8 10^3/uL (4.8-10.8) 09/11/25 07:16
Hgb 12.8 g/dL (12.0-16.0) 09/11/25 07:16
Hct 36.1 % (37.0-47.0) L 09/11/25 07:16
MCV 88.3 fL (81.0-99.0) 09/11/25 07:16
Plt Count 223 10^3/uL (130-400) 09/11/25 07:16
Absolute Neuts (auto) 4.7 10^3/uL (1.4-6.5) 09/11/25 07:16
Sodium 135 mmol/L (135-145) 09/11/25 07:16
Potassium 4.5 mmol/L (3.5-5.1) 09/11/25 07:16
Chloride 104 mmol/L (98-107) 09/11/25 07:16
Carbon Dioxide 20 mmol/L (22-30) L 09/11/25 07:16
BUN 20 mg/dl (7-17) H 09/11/25 07:16
Creatinine 1.1 mg/dL (0.6-1.0) H 09/11/25 07:16
Calcium 9.9 mg/dl (8.4-10.2) 09/11/25 07:16
Total Bilirubin 1.1 mg/dl (0.2-1.3) 09/11/25 07:16
AST 20 U/L (14-36) 09/11/25 07:16
ALT 15 U/L (0-35) 09/11/25 07:16
Alkaline Phosphatase 66 U/L (38-126) 09/11/25 07:16
Diagnostic Image Results:
09/11/25 CT Abd/pelvis W Iv Cont
IMPRESSION: Diffuse mild wall thickening and enhancement involving the entire colon, suggestive of diffuse colitis. Main consideration for infectious colitis, as well as antibiotic associated C. difficile colitis. Ischemic colitis would be unlikely
to have such a diffuse distribution. Inflammatory bowel disease is a differential consideration.
Colonic diverticula are present, with no convincing evidence for diverticulitis.
No evidence for bowel obstruction. No evidence of free intraperitoneal air.
Bony degenerative changes as described.
Prior GI Procedures:
EGD: none
Colonoscopy: last 2 years ago normal
Assessment / Plan
-
Pt is a 80yo presents with hx HTN, hyperlipidemia, NIDDM, murmur, scarlet fever, prior mag, multiple spinal surgery and recent TKR 11 weeks ago presents with ER visit last week with weakness and urinary frequency with nausea. Pt was started on
Omnicef with Ecoli on cx. She now returns feeling worse with fatigue, urinary frequency, and crampy abdominal pain. On admission Ct with IV contrast completed with concern for diffuse wall thickening in entire colon. infectious vs less likely
ischemic vs IBD. In review with patient she has hx chronic bowel issues. She will have several days with no stools then formed stool followed with several loose stools and often take antidiarrheal medication. She admits to recent knee surgery
with initial narcotic use then she started Amlodipine and began with issues. She admits to feeling of nausea and dry heaves with decreased appetite with wt loss over last week. She began to take senna last few days as thought she was constipation
with antibiotic use and actually had about 4 BM in ER and now feeling better. She dose admits to some residual lower abdominal pain. Pt admits to probiotic use but denies any other chronic laxative use. She admits to hx 5 colonoscopies in past at
[facility] then repeat last 2 years ago in [place] with normal results and told to use Imodium as needed for diarrhea. No prior EGD. No NSAID or anticoagulation use. On admission no fever with normal WBC's, creat 1.1 otherwise stable labs. UA
with few bacteria.
-CT with pancolitis with lower abdominal pain
-fatigue
-nausea with dry heaves
-recent concern for Ecoli UTI last week
-hx bout of diarrhea with concern for underlying constipation with overflow
-recent TKR
-HTN with recent start of Amlodipine
-chronic pain with Celebrex use
other med problems:
hyperlipidemia, NIDDM, murmur, scarlet fever, prior mag, multiple spinal surgery
PLAN:
Etiology of symptoms with concern for pancolitis vs constipation related as now feeling improved after 4 stools in ER vs other
doubt Amlodipine related as recently started but low GI side effect profile
for recheck of Urine
if develops diarrhea check stool studies to rule out c-diff
discussed with patient need for bowel regiment -- would continue senna at HS and add Miralax daily as concern for underlying overflow issues
pt also has mag supplement on home list
ok for clear diet advance as tolerated
antibiotics held for now
cont Protonix with chronic Celebrex use
-
-
Thank you for consultation and allowing me to participate in the patient's care. Please call the personal computer network analyst GI physician during the after hours with any questions or concerns.
[2025-09-11 17:34] LABS: Glucose - Point of Care 112 mg/dl (70-99)
[2025-09-11 17:35] VITALS: BMI 24.7
[2025-09-11 17:36] VITALS: BP 152/92
[2025-09-11] MEDS: NSS 1000 IV (18:01)
[2025-09-11] MEDS: MIDAMOR 5 MG PO (18:05)
--- NOTE | 2025-09-11 19:33 | PTCARENOTE ---
Received pt from ED, ambulated from stretcher to bed with no assistive device or personnel. AAOx3, VSS, pt with no c/o abd pain or nausea at this time. Admission complete, pt oriented to call love and room, pt resting comfortably in bed with call
love and at side at this time.
[2025-09-11] MEDS: TYLENOL 650 MG PO (19:48)
[2025-09-11] MEDS: COREG 6.25 MG PO (19:49)
[2025-09-11] MEDS: CARDURA 4 MG PO (21:21)
[2025-09-11] MEDS: AMBIEN 5 MG PO (21:22)
[2025-09-11] MEDS: LIPITOR 20 MG PO (21:22)
[2025-09-11 21:43] LABS: Glucose - Point of Care 129 mg/dl (70-99)
[2025-09-11 23:40] VITALS: BP 130/63
[2025-09-12 05:50] LABS: Hematocrit 32.1 % (37.0-47.0); Hemoglobin 11.0 g/dL (12.0-16.0); Mean Corp Hgb Conc. 34.3 g/dL (33.0-37.0); Mean Corpuscular Volume 89.4 fL (81.0-99.0); Nucleated Red Blood Cells % 0 %; Platelet Count 186 10^3/uL (130-400); Red Cell Dist. Width 11.5 % (11.5-14.5)
[2025-09-12 06:10] LABS: Blood Urea Nitrogen 17 mg/dl (7-17); Calcium 9.2 mg/dl (8.4-10.2); Carbon Dioxide 22 mmol/L (22-30); Chloride 106 mmol/L (98-107); Estimated Creatinine Clearance 42 ml/min; Glucose 114 mg/dl (70-99); Magnesium 1.7 mg/dl (1.6-2.3); Potassium 3.9 mmol/L (3.5-5.1); Sodium 134 mmol/L (135-145); eGFR 56.95
[2025-09-12] MEDS: NSS 1000 IV (06:35)
[2025-09-12 07:35] VITALS: BP 126/73
[2025-09-12 08:06] LABS: Glucose - Point of Care 143 mg/dl (70-99)
[2025-09-12] MEDS: NORVASC 5 MG PO (08:14)
[2025-09-12] MEDS: VITAMIN B-12 1000 MCG PO (08:14)
[2025-09-12] MEDS: OCUVITE SOFTGEL 1 CAP PO (08:14)
[2025-09-12] MEDS: COREG 6.25 MG PO (08:15)
[2025-09-12] MEDS: PROTONIX 40 MG PO (08:15)
[2025-09-12] MEDS: VITAMIN D3 (cholecalciferol) 25 MCG PO (08:15)
[2025-09-12] MEDS: SINGULAIR 10 MG PO (08:15)
[2025-09-12] MEDS: ULTRAM 50 MG PO ×2 (08:29→12:41)
--- NOTE | 2025-09-12 09:23 | CM ---
Patient seen at bedside on . Patient lives with in a 2 story home with no DME at this time. Patient PCP is [facility]. Patient to see new physician this week in the same office. Patient uses the [facility] in [place].
Patient plan is for discharge home with no needs. IMM completed and signed form placed on chart. CM will continue to follow for discharge planning needs.
Plan; home with no needs.
--- NOTE | 2025-09-12 09:30 | W.PN.GI.CBS2 ---
Today's Communication / Plan
-
regular diet
bowel regimen
Assessment / Plan
-
Pt with constipation likely causing all symptoms. Feels very well this morning. For now:
1. bowel regimen with senna, miralax. I did write out for her how to titrate this
2. she would like to switch GIs and we will make her a routine appt (our office will call)
3. cancel c. diff
4. regular diet
no further GI w/u will sign off
Subjective
Subjective
Date of Service: September 12, 2025
Pt feels well after having multiple formed bms.
Objective
Data Reviewed
Laboratory Data:
Laboratory Results
09/12/25 05:30
09/12/25 05:30
Laboratory Results
Magnesium 1.7 mg/dl (1.6-2.3) 09/12/25 05:30
Total Bilirubin 1.1 mg/dl (0.2-1.3) 09/11/25 07:16
AST 20 U/L (14-36) 09/11/25 07:16
ALT 15 U/L (0-35) 09/11/25 07:16
Alkaline Phosphatase 66 U/L (38-126) 09/11/25 07:16
Vital Signs and I&O:
Vital Signs
Temp Pulse Resp BP Pulse Ox
98.4 F 79 16 123/76 97
09/12/25 07:35 09/12/25 08:14 09/12/25 07:35 09/12/25 08:14 09/12/25 08:00
I&O
09/11/25 09/12/25 09/13/25
06:59 06:59 06:59
Intake Total 1330 / 1330
Balance 1330 / 1330
Physical Exam
Physical Exam
GI: Soft, Non Distended and Non Tender
Neuro: Non Focal
[2025-09-12 10:13] LABS: Glycohemoglobin (HgbA1c) 6.4 % (4.0-5.9)
[2025-09-12 12:38] LABS: Glucose - Point of Care 192 mg/dl (70-99)
--- NOTE | 2025-09-12 12:43 | W.PN.HOSP.TC ---
Today's Communication/Plan
-
dc ivf
advance diet
bowel regimen
Assessment / Plan
Assessment / Plan
General: Well Developed, Well Nourished and No Apparent Distress
HEENT: NormoCephalic, Moist mucous membranes and Atraumatic
Respiratory: Clear
Cardiac: S1/S2 and Regular Rhythm; No Murmur or Rub
GI: Soft, Non Distended, Normal Bowel Sounds and Tender; No Organomegaly
Rectal: Deferred by Provider
Musculoskeletal: No Clubbing, No Cyanosis and No Edema
Skin: No Rash
Neuro: Awake, AO x 3, No Motor Deficits and Nonfocal/grossly intact
Psych: Calm
#Abdominal pain/nausea likely secondary to diffuse constipation
#History of colitis in the past unclear etiology
IBS unknown type
Has undergone colonoscopy not too long ago.
Hold off on antibiotics for now
s/p IVF
CT abd/pelvis with Diffuse mild wall thickening and enhancement involving the entire colon, suggestive of diffuse colitis. Main consideration for infectious colitis, as well as antibiotic associated C. difficile colitis. Ischemic colitis would be
unlikely to have such a diffuse distribution. Inflammatory bowel disease is a differential consideration.
Per GI-pt with severe constipation. Recs bowel regimen-initiated.
Diet advanced.
Await GI input
#Primary hypertension
Continue with carvedilol and Norvasc
#Hyperlipidemia
Continue with statin
Vitamin B12 deficiency
Continue with supplements
Diabetes mellitus type 2
Hold p.o. meds
Continue insulin sliding scale and Accu-Cheks
Chronic back pain
Continue with tramadol as needed
DVT ppx-lovenox
Full code
Dispo-plan for tentative dc later today pending diet tolerance
Anticipated Discharge: Today
Subjective/Interval History
-
Date of Service: September 12, 2025
feeling alot better compared to yesterday
having bowel movements
Objective Data
-
Labs:
Laboratory Results
09/12/25
05:30
WBC 4.7 L
Hgb 11.0 L
Hct 32.1 L
Plt Count 186
Sodium 134 L
Potassium 3.9
Chloride 106
Carbon Dioxide 22
BUN 17
Creatinine 1.0
Glucose 114 H
Calcium 9.2
Vital Signs:
Vital Signs
Temp Pulse Resp BP Pulse Ox
98.4 F 79 16 123/76 97
09/12/25 07:35 09/12/25 08:14 09/12/25 07:35 09/12/25 08:14 09/12/25 11:43
I&O
09/11/25 09/12/25 09/13/25
06:59 06:59 06:59
Intake Total 1330 / 1330 240 / 240
Balance 1330 / 1330 240 / 240
Data Reviewed
-
Total Time Spent with Patient (in minutes): 55
[2025-09-12 14:21] VITALS: BP 130/67
--- NOTE | 2025-09-12 14:45 | W.DCSUMMARY ---
Discharge Summary
Discharge Data
Date of Admission: 09/11/25
Date of Discharge: 09/12/25
-
Pending Results: No
Hospital Course
80-year-old female past medical history of hypertension hyperlipidemia diabetes mellitus arthritis irritable bowel syndrome was presented with feeling fatigued. Patient was recently seen in the ER was found to have urinary tract infection with
prescribed antibiotics and discharged home. Patient said at home she was drinking increasing amount of oral intake. Also states she felt constipated and started taking senna at home. Had intermittent abdominal pain and felt nauseous. She came
into the ER and underwent CT abdomen pelvis. By radiology with colitis. Gastroenterology was consulted who stated patient symptoms consistent with severe constipation. Patient was started on bowel regimen which patient started having. Patient
said her symptoms significantly improved. Diet was advanced which she was tolerating it. IV fluid was discontinued. Patient was recommended bowel regimen upon discharge and outpatient GI follow-up.
Discharge Plan
-
Patient Disposition: Home (Routine Discharge)
Discharge Diagnosis/Procedures: Abdominal pain, nausea likely secondary to diffuse constipation
Condition: Fair
Diet: Diabetic, Carb Controlled
Activity: As tolerated
Driving Restrictions: As prior to admission
Referrals:
Tevin Goodwin DO [Family Provider, Family Practice]
Prescriptions:
New
polyethylene glycol 3350 17 gram Powder In Packet
17 g PO DAILY Qty: 30 0RF
senna 8.6 mg capsule
8.6 mg PO HS Qty: 30 0RF
Continued
carvedilol [Coreg] 6.25 mg Tablet
6.25 mg PO BID
atorvastatin [Lipitor] 20 mg Tablet
20 mg PO HS
glipizide 5 mg Tablet Extended Release 24hr
5 mg PO DAILY
cyanocobalamin (vitamin B-12) 1,000 mcg Tablet
1,000 mcg PO DAILY
amlodipine [Norvasc] 5 mg Tablet
5 mg PO DAILY
tramadol 50 mg Tablet
50 mg PO QIDPRN PRN (Reason: MODERATE PAINS)
amiloride 5 mg Tablet
5 mg PO QPM
pantoprazole [Protonix] 40 mg Tablet,Delayed Release (Dr/Ec)
40 mg PO DAILY
doxazosin 4 mg Tablet
4 mg PO HS
montelukast [Singulair] 10 mg Tablet
10 mg PO DAILY
zolpidem [Ambien] 5 mg Tablet
5 mg PO HS
gabapentin 100 mg Capsule
100 mg PO DAILYPRN PRN (Reason: MILD PAIN)
celecoxib [Celebrex] 100 mg Capsule
100 mg PO BID
lisinopril 40 mg Tablet
40 mg PO DAILY
magnesium oxide 250 mg magnesium Tablet
250 mg PO TID
peg 400-propylene glycol (PF) 0.4-0.3 % Dropperette
1 drp BOTH EYES BIDPRN PRN (Reason: DRY EYES)
cholecalciferol (vitamin D3) [Vitamin D3] 25 mcg (1,000 unit) Tablet
25 mcg PO DAILY
levocetirizine [Xyzal] 5 mg Tablet
5 mg PO HSPRN PRN (Reason: ALLERGIES)
PreserVision AREDS 2,148 mcg-113 mg-45 mg-17.4mg Tablet
1 tab PO DAILY
guaifenesin [Mucinex] 600 mg Tablet Extended Release 12hr
600 mg PO DAILYPRN PRN (Reason: COUGH)
sennosides [senna] 8.6 mg Tablet
8.6 mg PO HS
acetaminophen [Tylenol] 325 mg Tablet
650 mg PO Q6HPRN PRN (Reason: MILD PAIN)
Discontinued
cefdinir 300 mg capsule
300 mg PO BID Qty: 14 0RF
Rx Instructions:
FOR 7 DAYS STARTING 09/04/25
Discharge Orders:
Discharge Patient (As Directed); Ordered 09/12/25
Ordered By: Chris Bowen
Discharge Date and Time
Print Language: [id number]
== END 2025-09-12 14:45 | disposition home or self-care (01) | DRG 392 ==
LOC: 2 NORTH 14:04
PROVIDERS: Emergency Medicine; ADMITTING PHYSICIAN Hospitalist; CONSULT PHYSICIAN Internal Medicine; EMERGENCY PHYSICIAN Emergency Medicine; FAMILY PHYSICIAN Family Medicine
DX: K58.1 Irritable bowel syndrome with constipation (principal); E53.8 Deficiency of other specified B group vitamins; N18.9 Chronic kidney disease, unspecified; E11.22 Type 2 diabetes mellitus with diabetic chronic kidney disease; I12.9 Hypertensive chronic kidney disease with stage 1 through stage 4 chronic kidney disease, or unspecified chronic kidney disease; E78.00 Pure hypercholesterolemia, unspecified; G89.29 Other chronic pain; Z11.52 Encounter for screening for COVID-19; Z79.1 Long term (current) use of non-steroidal anti-inflammatories (NSAID); Z79.84 Long term (current) use of oral hypoglycemic drugs; Z79.899 Other long term (current) drug therapy; Z88.0 Allergy status to penicillin; Z90.710 Acquired absence of both cervix and uterus; Z96.651 Presence of right artificial knee joint
CPT/HCPCS: 71046; 74177; 80048; 80053; 81003; 81015; 82962; 83036; 83735; 85025; 87045; 87046; 87086; 87328; 87329; 87427; 87502; 87811; 89055; 93005; 99285; Q9967